=== PATIENT | female | born 1955 | race Caucasian/White ===

== ENCOUNTER 2022-05-20 07:30 | Outpatient (RCR) | payer MEDICARE, SELFPAY ==
--- NOTE | 2022-04-09 08:32 | PT.OPEX ---
PT [facility] Outpatient Eval PT [facility] Outpatient Eval Start: 04/08/22 11:05 Freq: Status: Active Protocol: Document 04/09/22 07:17 REZAChyna (Rec: 04/09/22 07:20 CLK [id number]) E-signed By Melina Tee PT Physical Therapy Outpatient Evaluation Insurance Information Recert Due Date 07/02/22 Insurance Name Medicare B Medical Diagnosis Rt Leg Pain Treating Diagnosis Rt leg pain, impaired strength and ambulation tolerance Reduced ease of ADL's Referring MD Dr Germaine Hunt Subjective Subjective Pema reports having sudden onset of Rt leg sciatic pain 3 weeks ago. Pain was 10/10. Has seen a chiro and taking 3 advil has been helpful. Pain comes and goes. It was worse after chiro. Normally I am very busy - I garden, ayse, walk 3 miles per hour on my TM - but I think my incline was at 8 or 9 and that seemed like maybe it started the pain . Sitting is fine, standing really kills me. Ice helps a bit, heat doesn't seem to help much. Compression hose seems to help too. I take 2 Advil pm and then I sleep fine. I tried riding my bike to the mail box, but the pain was excruciating. Pain Comments 5-04/28 Date of Last Physician Visit 03/26/22 Current Work Status Retired Precautions Treatment Precautions/Contraindications Arthritis, depression, allergies Weight Bearing Status Full Weight Bearing Therapy Limitations/Systems Review Vision Objective Range of Motion Trunk AROM FF WNL, EXT 50% of normal and severe pain. Trunk ROT and SB were normal and pain free Hip AROM is WNL Strength Joel hip EXT and ABD 3+/5 Palpation Rt ant ilial rotation, immobility joel superior sacral angles (pain with testing) and Rt lower lumbar psps hypertension. Very sensitive at Rt piriformis trigger points Balance & Gait Slightly reduced Rt stance phase of gait SLS average 6 seconds joel Posture Slight increase in lumbar lordosis Assessment Assessment/Impression 67 yo with DX of Rt leg pain. She arrived to dept via IND ambulation without any AD. She presents with slightly WBOS and reduced stance phase of gait Rt LE. SLS average a bit less joel, average of 7 seconds . Palpably reduced mobility AP movement of Lt pelvic annominant. Hypertonic with palpation at lower lumbar psps , glut med/max and piriformis Rt side. Slightly reduced mobility joel superior SI joint angles, moderate+ pain with palpation at superior sacrum. She has reduced trunk EXT range (50% of normal) and Rt ant ilial rotation. Rt iliopsoas tightness and joel hip EXT and ABD weakness. She will benefit from continued skilled physical therapy to address the above sacral dysfunctions. Thank you for this referral. Plan of Care Rehabilitation Potential Good Physical Therapy Goals In 3-5 visits, Pema will be able to: 1. Sit to stand with symmetric WB and pain free status 75% of the time. 2. Back EXT 75% of normal pain free with execution. 3. IND in entire HEP with emphasis on alignment, reps and HOLD times for cont self cares once DC from PT IN 8-10 visits, Pema will be able to: 1. Stand/walk up to 90 min without SI or Rt LE pain greater than average of 3/10 90% of the time. 2. Resume PLOF with riding bike (3 miles) walk (3 miles) and home cares up to 9o min ( cook, ayse, gardening yard work, etc) without pain greater than 2/10 average 90% of the time. 3. A/D stairs with reciprocal pattern and pain free status 90% of the time. Coordination/Communication With Referral Source Treatment Plan/Direct Interventions Joint Mobilization,Manual Therapy,Neuromuscular Re-ed, Self-Care/Home Management, Therapeutic Activities, Therapeutic Exercises Frequency/Duration 1X/Wk for 10 visits Patient Will Be Discharged From Therapy Completion of LTG(s),Skills Plateau,Independent w/HEP, Independently Progressing Evaluation Billing Untimed Code Treatment Minutes 35 Complexity Moderate Certification Information Initial Certification Date 04/09/22 Ending Certification Date 07/02/22 Provider Signature Shows Agreement With POC & Medical Necessity Physician Comment/Change Comment or Changes Physician NPI Number #
== END 2022-05-20 08:02 | disposition home or self-care (01) ==
PROVIDERS: PCP Family Medicine; Visit Provider Family Medicine
DX: M79.604 Pain in right leg (principal); Z51.89 Encounter for other specified aftercare
CPT/HCPCS: 97110; 97140; 97162